=== PATIENT | male | born 1955 | race Caucasian/White ===

== ENCOUNTER 2019-12-26 00:21 | Emergency (ER) | payer BC ==
[2019-12-26 00:30] LABS: Glucose,Whole Blood 84 mg/dL (75-99)
[2019-12-26 00:44] LABS: Glucose,Whole Blood 82 mg/dL (75-99)
[2019-12-26] MEDS ORDERED: DEXTROSE 50% SYRINGE 50 ML IVP STA (00:47)
--- NOTE | 2019-12-26 01:03 | ED ---
General Adult HPI - General Chief complaint: Recheck/Abnormal Lab/Rx Stated complaint: Hypoglycemia Time Seen by Provider: 12/26/19 00:33 Source: patient, EMS, RN notes reviewed Mode of arrival: EMS Limitations: no limitations - History of Present Illness Initial comments: 64-year-old male with a past medical history of IDDM, hypertension presents to the emergency room for a chief complaint of low blood sugar. Patient reports he took about 38 units of basilar prior to arrival. He reports this is the amount of insulin he always takes. Patient was reportedly found on the ground unresponsive by EMS with a blood sugar of 42. He was given an amp of dextrose which did increase to 90. Patient reports he is feeling much better at this time.Patient has no other complaints at this time including shortness of breath, chest pain, abdominal pain, nausea or vomiting, headache, or visual changes. - Related Data Allergies Allergy/AdvReac Type Severity Reaction Status Date / Time fentanyl AdvReac Confusion Verified 12/26/19 00:32 Review of Systems ROS Statement: Those systems with pertinent positive or pertinent negative responses have been documented in the HPI. ROS Other: All systems not noted in ROS Statement are negative. Past Medical History Past Medical History: Diabetes Mellitus, Hypertension History of Any Multi-Drug Resistant Organisms: None Reported Past Surgical History: No Surgical Hx Reported Past Psychological History: No Psychological Hx Reported Smoking Status: Former smoker Past Alcohol Use History: Rare Past Drug Use History: None Reported General Exam Limitations: no limitations General appearance: alert, in no apparent distress Head exam: Present: atraumatic, normocephalic, normal inspection Eye exam: Present: normal appearance, PERRL, EOMI. Absent: scleral icterus, conjunctival injection, periorbital swelling ENT exam: Present: normal exam, mucous membranes moist Neck exam: Present: normal inspection, full ROM. Absent: tenderness, meningismus, lymphadenopathy Respiratory exam: Present: normal lung sounds bilaterally. Absent: respiratory distress, wheezes, rales, rhonchi, stridor Cardiovascular Exam: Present: regular rate, normal rhythm, normal heart sounds. Absent: systolic murmur, diastolic murmur, rubs, gallop, clicks GI/Abdominal exam: Present: soft, normal bowel sounds. Absent: distended, tenderness, guarding, rebound, rigid Neurological exam: Present: alert Course Vital Signs 12/26/19 12/26/19 12/26/19 00:27 00:45 02:08 Temperature 94.4 F L 97.4 F L Pulse Rate 85 84 Respiratory 16 16 Rate Blood Pressure 147/85 111/76 O2 Sat by Pulse 98 95 Oximetry 12/26/19 03:04 Temperature 97.6 F Pulse Rate 74 Respiratory 18 Rate Blood Pressure 119/75 O2 Sat by Pulse 95 Oximetry Medical Decision Making - Medical Decision Making Vitals are stable. Patient was given second amp of dextrose here in the emergency room. He was monitored for 3 hours. Glucose was maintained at around 200. Patient is alert and oriented. At this time patient was discharged home in stable condition with his . He will follow-up with his doctor. He will return here for any worsening symptoms. - Lab Data Lab Results 12/26/19 12/26/19 12/26/19 Range/Units 00:23 00:42 01:15 POC Glucose (mg/dL) 84 82 215 H (75-99) mg/dL POC Glu Set Making Machine Operator Jayant Blake Blain Radtke, Blain 12/26/19 12/26/19 12/26/19 Range/Units 01:31 01:47 02:05 POC Glucose (mg/dL) 216 H 193 H 206 H (75-99) mg/dL POC Glu [employer] Making Machine Operator Jayant Blake Blain Fetterly, Samantha 12/26/19 12/26/19 Range/Units 02:30 03:01 POC Glucose (mg/dL) 179 H 192 H (75-99) mg/dL POC Glu [employer] Making Machine Operator Keyonna Encinas Samantha Disposition Clinical Impression: Hypoglycemia Disposition: HOME SELF-CARE Condition: Good Instructions (If sedation given, give patient instructions): What to Do if Your Blood Sugar is Low (ED) Additional Instructions: Please follow-up with your doctor in one to 2 days. Return to the emergency room for any worsening symptoms. Is patient prescribed a controlled substance at d/c from ED?: No Referrals: Florecita Fuller DO [Primary Care Provider] - 1-2 days Time of Disposition: 03:19
[2019-12-26 01:17] LABS: Glucose,Whole Blood 215 mg/dL (75-99)
[2019-12-26 01:33] LABS: Glucose,Whole Blood 216 mg/dL (75-99)
[2019-12-26 01:48] LABS: Glucose,Whole Blood 193 mg/dL (75-99)
[2019-12-26 02:08] LABS: Glucose,Whole Blood 206 mg/dL (75-99)
[2019-12-26 02:32] LABS: Glucose,Whole Blood 179 mg/dL (75-99)
[2019-12-26 03:03] LABS: Glucose,Whole Blood 192 mg/dL (75-99)
[2019-12-26 03:09] VITALS: BP 119/75; PULSE 74; RESP 18; TEMP 97.6
== END 2019-12-26 03:35 | disposition home or self-care (01) ==
LOC: EC 00:21
DX: E11.649 Type 2 diabetes mellitus with hypoglycemia without coma (principal); Z87.891 Personal history of nicotine dependence; Z88.5 Allergy status to narcotic agent
CPT/HCPCS: 36415; 96374; 99285